=== PATIENT | female | born 1990 | race Caucasian/White ===

== ENCOUNTER 2020-09-11 16:44 | Emergency (ER) | payer SELFPAY ==
[~2020-09-11] VITALS: Ht 160 cm; Wt 66.0 kg
[2020-09-11 17:11] VITALS: BP 166/102
== END 2020-09-11 19:28 | disposition left against medical advice (07) ==
LOC: ER 16:44
DX: Z53.21 Procedure and treatment not carried out due to patient leaving prior to being seen by health care provider (principal); I49.9 Cardiac arrhythmia, unspecified
CPT/HCPCS: 93005